=== PATIENT | male | born 1940 | race Caucasian/White ===

== ENCOUNTER 2017-06-19 15:08 | Emergency (ER) | payer MEDICARE, BC ==
--- NOTE | 2017-06-19 16:30 | RAD ---
Indication: RIGHT rib pain after laying on a railing Comparison: No relevant prior exams available on the [facility] for comparison. Technique: Dual energy PA chest and 5 view RIGHT rib series. Report: No RIGHT rib fracture, pleural effusion, or pneumothorax. Diffuse mild prominence of the interstitial markings. The heart, pulmonary vasculature, and mediastinal contours are unremarkable. IMPRESSION: 1. No evidence for RIGHT rib fracture. 2. No evidence for acute intrathoracic disease.
[2017-06-19 17:10] VITALS: BP 146/76
--- NOTE | 2017-06-19 17:23 | UC ---
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 SINCE TIME OF EXERTION HAS HAD PAINFUL AREA IN RIGHT RIB, TENDER TO PALPATION. NO COUGH. NO BRUISING. NO FEVER. NO SOB. N0O CHEST PAIN. NO ABDOMINAL PAIN - History Of Current Complaint Chief Complaint: UCTrauma Stated Complaint: R FLANK PAIN Time Seen by Provider: 06/19/17 15:50 Hx Obtained From: Patient Onset/Duration: Sudden Onset, Lasting Days, Still Present Onset Of Pain: Post Accident Severity Initially: Moderate Severity Currently: Mild Mechanism Of Injury: Blunt Trauma Aggravating Factor(s): Movement Alleviating factor(s): Rest Associated Signs And Symptoms: Positive: Negative. Negative: SOB, Chest Pain, Cough, Hematuria, Abdominal Pain, Fever, Nausea, Vomiting - Allergies/Home Medications Allergies/Adverse Reactions: Allergies Allergy/AdvReac Type Severity Reaction Status Date / Time No Known Allergies Allergy Verified 06/19/17 15:17 PMH/Surg Hx/FS Hx/Imm Hx Previously Healthy: Yes Other History Of: Anticoagulant Therapy Negative For: HIV, Hepatitis B, Hepatitis C - Surgical History Surgical History: Yes Surgery Procedure, Year, and Place: appy, tonsilectomy - Family History Known Family History: Positive: Cardiac Disease - Aspirin. Negative: Diabetes - Social History Occupation: Employed Part-time Lives: With Family Alcohol Use: Daily Alcohol Amount: one drink before bed Substance Use Type: None Smoking Status (MU): Former Smoker Type: Cigarettes Length of Time of Smoking/Using Tobacco: 36 years Review of Systems Constitutional: Negative Skin: Negative Eyes: Negative ENT: Negative Respiratory: Negative Cardiovascular: Negative Gastrointestinal: Negative Genitourinary: Negative Motor: Negative Neurovascular: Negative Musculoskeletal: Arthralgia - RIGHT RIB Neurological: Negative Psychological: Negative Is Patient Immunocompromised?: Yes - ON PREDNISONE All Other Systems Reviewed And Are Negative: Yes Physical Exam Triage Information Reviewed: Yes Appearance: Well-Appearing, Well-Nourished, Ill-Appearing, Pain Distress - MILD Vital Signs: Initial Vital Signs Temp 97.3 F 06/19/17 15:13 Pulse 64 06/19/17 15:13 Resp 12 06/19/17 15:13 BP 124/62 06/19/17 15:13 Pulse Ox 97 06/19/17 15:13 Vital Signs Reviewed: Yes Eye Exam: Normal Eyes: Positive: Conjunctiva Clear ENT Exam: Normal ENT: Positive: Normal ENT inspection, TMs normal Dental Exam: Normal Neck exam: Normal Neck: Positive: Supple, Nontender, No Lymphadenopathy Respiratory Exam: Normal Respiratory: Positive: Chest non-tender, Lungs clear, Normal breath sounds, No respiratory distress, No accessory muscle use Cardiovascular Exam: Normal Cardiovascular: Positive: RRR, No Murmur, Pulses Normal Abdominal Exam: Normal Abdomen Description: Positive: Nontender, No Organomegaly Musculoskeletal: Positive: Strength Intact, ROM Intact, No Edema, Other: - PAIN IN ANTERIOR RIGHT RIBS WITH PALPATION AND WITH EXTENSION OF RIGHT SHOULDER Neurological Exam: Normal Psychological Exam: Normal Psychological: Positive: Normal Response To Family Skin Exam: Normal Truncal Trauma Course/Dx - Differential Dx/Diagnosis Differential Diagnosis/HQI/PQRI: Abdominal Wall Contusion, Chest Wall Contusion , Chest Wall Abrasion, Hepatic Trauma, Liver Trauma Provider Diagnoses: RIGHT RIB CONTUSION Discharge - Discharge Plan Condition: Stable Disposition: HOME Patient Education Materials: Rib Contusion (ED) Referrals: [facility] [Outside] [facility] [Outside] Non Staff,Doctor [Primary Care Provider] - Images Front/Back of Body, Lg ([place]): 1 - PAIN HERE
== END 2017-06-19 17:13 | disposition home or self-care (01) ==
LOC: UCEAST 15:08
DX: S20.211A Contusion of right front wall of thorax, initial encounter (principal); X50.1XXA Overexertion from prolonged static or awkward postures, initial encounter; Y93.89 Activity, other specified; Y92.89 Other specified places as the place of occurrence of the external cause; Z79.01 Long term (current) use of anticoagulants; Z87.891 Personal history of nicotine dependence
CPT/HCPCS: 99213; G0463

== ENCOUNTER 2021-04-26 16:21 | Inpatient (IN) ==
[2021-04-26] MEDS ORDERED: Heparin - STEMI 5,000 UNITS/ML 1 ml VIAL IV ONE (16:28)
[2021-04-26 16:42] LABS: ABS Basophils 0.1 10^3/ul (0-0.2); ABS Eosinophils 0.1 10^3/ul (0-0.6); ABS Lymphocytes 2.1 10^3/ul (1.0-4.8); ABS Monocytes 0.8 10^3/ul (0-0.8); ABS Neutrophils 5.6 10^3/ul (1.5-7.7); Eosinophil % 0.9 %; Hematocrit 37 % (42-52); Hemoglobin 12.6 g/dL (14.0-18.0); Lymphocyte % 24.6 %; Mean Corpuscular HGB Conc 34 g/dL (31-36); Mean Corpuscular Hemoglobin 33 pg (27-31); Mean Corpuscular Volume 96 fL (80-94); Mean Platelet Volume 8.6 fL (7.4-10.4); Platelet Count 242 10^3/uL (150-450); Red Blood Count 3.88 10^6 /uL (4.18-5.48); Red Cell Distribution Width 15 % (10-15); White Blood Count 8.6 10^3/uL (3.5-10.8)
[2021-04-26 16:58] LABS: ALT 16 U/L (7-52); Albumin 4.2 g/dL (3.2-5.2); Albumin/Globulin Ratio 1.6 (1-3); Alkaline Phosphatase 36 U/L (35-149); Blood Urea Nitrogen 21 mg/dL (6-24); CO2 Carbon Dioxide 21 mmol/L (22-32); Calcium 9.7 mg/dL (8.6-10.3); Chloride 104 mmol/L (101-111); EGFR Non-African American 72.7 (>60); Globulin 2.6 g/dL (2-4); Glucose 117 mg/dL (70-100); LDL Cholesterol Direct 198 mg/dL; Sodium 132 mmol/L (135-145); Total Protein 6.8 g/dL (6.4-8.9)
[2021-04-26 17:01] LABS: Activated Partial Thrombo Time 27.2 seconds (26.0-38.0); INR 1.07 (0.86-1.15)
[2021-04-26 17:02] LABS: Anion Gap 7 mmol/L (2-11); Troponin I 0.12 ng/mL (<0.03)
[2021-04-26] MEDS ORDERED: Heparin 5000 UNITS/ML 1 mL VIAL IV PRN (18:00)
[2021-04-26] MEDS ORDERED: NS 0.9% 1000 ml BAG 1,000 ML IV SCH (18:15)
[2021-04-26 19:22] LABS: ABS Basophils 0.1 10^3/ul (0-0.2); ABS Lymphocytes 1.9 10^3/ul (1.0-4.8); ABS Monocytes 0.5 10^3/ul (0-0.8); ABS Neutrophils 5.4 10^3/ul (1.5-7.7); Eosinophil % 0.4 %; Hematocrit 36 % (42-52); Hemoglobin 12.4 g/dL (14.0-18.0); Lymphocyte % 23.9 %; Mean Corpuscular HGB Conc 35 g/dL (31-36); Mean Corpuscular Hemoglobin 33 pg (27-31); Mean Corpuscular Volume 95 fL (80-94); Mean Platelet Volume 8.2 fL (7.4-10.4); Platelet Count 220 10^3/uL (150-450); Red Blood Count 3.74 10^6 /uL (4.18-5.48); Red Cell Distribution Width 15 % (10-15); White Blood Count 7.8 10^3/uL (3.5-10.8)
[2021-04-26] MEDS: Heparin DRIP 25,000 UNITS BAG 25,000 UNITS/500 ML BAG IV SCH (19:34)
[2021-04-26 19:44] LABS: EGFR African American 98.2 (>60); EGFR Non-African American 81.2 (>60); Potassium Redraw 3.9 mmol/L (3.5-5.0)
[2021-04-27 05:32] LABS: ABS Basophils 0.1 10^3/ul (0-0.2); ABS Eosinophils 0.1 10^3/ul (0-0.6); ABS Lymphocytes 2.6 10^3/ul (1.0-4.8); ABS Neutrophils 4.2 10^3/ul (1.5-7.7); Eosinophil % 1.8 %; Hematocrit 33 % (42-52); Hemoglobin 11.3 g/dL (14.0-18.0); Lymphocyte % 32.8 %; Mean Corpuscular HGB Conc 34 g/dL (31-36); Mean Corpuscular Hemoglobin 33 pg (27-31); Mean Corpuscular Volume 95 fL (80-94); Mean Platelet Volume 8.7 fL (7.4-10.4); Platelet Count 205 10^3/uL (150-450); Red Blood Count 3.48 10^6 /uL (4.18-5.48); Red Cell Distribution Width 14 % (10-15); White Blood Count 8.1 10^3/uL (3.5-10.8)
[2021-04-27 05:46] LABS: Anion Gap 7 mmol/L (2-11); Blood Urea Nitrogen 15 mg/dL (6-24); CO2 Carbon Dioxide 23 mmol/L (22-32); Calcium 8.6 mg/dL (8.6-10.3); Chloride 106 mmol/L (101-111); Cholesterol 254 mg/dL; EGFR African American 115.9 (>60); EGFR Non-African American 95.8 (>60); Glucose 102 mg/dL (70-100); HDL Cholesterol 69.4 mg/dL; LDL Cholesterol 174 mg/dL; Potassium 3.6 mmol/L (3.5-5.0); Sodium 136 mmol/L (135-145); Triglycerides 55 mg/dL
[2021-04-27 09:01] LABS: Troponin I 11.65 ng/mL (<0.03)
[2021-04-27] MEDS ORDERED: Perflutren Lipid Microsphere 3 ML VIAL ONE (10:59)
[2021-04-27 17:07] VITALS: BP 110/59
[2021-04-27] MEDS: Heparin DRIP 25,000 UNITS BAG 25,000 UNITS/500 ML BAG IV SCH (18:29)
== END 2021-04-27 18:56 | disposition short-term general hospital (02) | DRG 282 ==
LOC: ED 16:21 → CHICATH 16:56 → ICU 18:06
PROVIDERS: ADMIT Internal Medicine Cardiovascular Disease; ATTEND Internal Medicine Cardiovascular Disease